=== PATIENT | male | born 2000 | race African-American/Black ===

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

== ENCOUNTER 2019-01-10 06:17 | Emergency (ER) | payer OTHER ==
[~2019-01-10] VITALS: Ht 182.9 cm; Wt 68.0 kg
[~2019-01-10 06:17] MED LIST changes: +ULTRAM50 M1 PO
[2019-01-10 07:47] VITALS: BP 134/85
== END 2019-01-10 07:47 | disposition home or self-care (01) | DRG 605 ==
LOC: ED 06:17
PROC: 0HQGXZZ Repair Left Hand Skin, External Approach (ICD-10-PCS; principal; 2019-01-10)
DX: S61.012A Laceration without foreign body of left thumb without damage to nail, initial encounter (principal); W26.0XXA Contact with knife, initial encounter; Y93.G1 Activity, food preparation and clean up; Y92.89 Other specified places as the place of occurrence of the external cause; Y99.0 Civilian activity done for income or pay

== ENCOUNTER 2019-11-29 22:45 | Observation (INO) | payer OTHER ==
[~2019-11-29] VITALS: Ht 182.9 cm; Wt 68.2 kg
--- NOTE | 2019-11-29 23:00 | NUR ---
TO ROOM FOR TRIAGE.
[2019-11-29 23:44] LABS: HEMATOCRIT 40.9 % (39.0-50.0); HEMOGLOBIN 13.3 g/dl (14.0-18.0); IMMATURE GRANULOCYTES 0.1 % (0.0-5.0); MEAN CELL VOLUME 86.3 fL CALC (80.0-100.0); MEAN CORPUSCULAR HGB 28.1 pG CALC (26.0-32.0); MEAN CORPUSCULAR HGB CONC 32.5 g/dL CAL (32.0-36.0); NEUT# 2.84 thou/uL (1.82-7.42); RED BLOOD COUNT 4.74 mill/uL (4.70-6.10); RED CELL DISTRI WIDTH 13.2 % (11.5-15.5)
[2019-11-29 23:53] LABS: ALBUMIN 4.4 g/dL (3.2-5.0); ALKALINE PHOSPHATASE 123 u/l (38-126); ANION GAP 11 (6-22 (CALC)); BILIRUBIN, TOTAL 0.4 mg/dL (0.0-1.4); BUN 15 mg/dL (9-20); BUN/CREATININE RATIO 18 (12-20 (CALC)); CARBON DIOXIDE 28 mmol/l (22-30); CHLORIDE 103 mmol/l (95-108); CREATININE 0.8 mg/dL (0.7-1.3); GFR > 60 ML/MIN (>=60 (CALC)); GFR FOR AFR.AMER. > 60 ML/MIN (>=60 (CALC)); POTASSIUM 3.5 mmol/l (3.5-5.1); SGOT/AST 37 u/l (17-59); SODIUM 139 mmol/l (137-146); TOTAL PROTEIN 7.6 g/dL (6.3-8.2)
[2019-11-30] VITALS (8 sets, daily range): BP systolic 130–153; BP diastolic 73–91
[2019-11-30 00:05] LABS: MYOGLOBIN 32 ng/mL (0 - 121)
--- NOTE | 2019-11-30 01:00 | NUR ---
PAIN FREE. NO C/O.
--- NOTE | 2019-11-30 02:00 | NUR ---
AWAITING TEST RESULTS. NO CHANGE NOTED.
--- NOTE | 2019-11-30 04:00 | NUR ---
Admission Note Report Given to: GONZALEZ GO Transported by: Wheelchair X Stretcher Transported with: X Nurse Transporter X Patent IV O2 X Telecommunications Line Installer Location: X ICU MS2
--- NOTE | 2019-11-30 04:09 | NUR ---
19 yr old black male admitted icu7 per stretcher as medsurg tele overflow. amb self to bed. bed weight obtained. monitoring tech shows sinus yonis, in & out of jct'l rhythm hr 42. #20 rac saline lock. history obtained per pt & er record. oriented to room. fall precautions initiated.
--- NOTE | 2019-11-30 05:53 | NUR ---
rt here. ekg obtained.
--- NOTE | 2019-11-30 07:23 | NUR ---
PT SLEEPING IN BED, NO S/S OF DISTRESS. WILL CONTINUE TO MONITOR.
--- NOTE | 2019-11-30 08:03 | NUR ---
LAB @BEDSIDE FOR AM DRAW.
[2019-11-30 08:24] LABS: HEMATOCRIT 40.4 % (39.0-50.0); HEMOGLOBIN 13.1 g/dl (14.0-18.0); MEAN CELL VOLUME 86.9 fL CALC (80.0-100.0); MEAN CORPUSCULAR HGB 28.2 pG CALC (26.0-32.0); MEAN CORPUSCULAR HGB CONC 32.4 g/dL CAL (32.0-36.0); NEUT# 1.66 thou/uL (1.82-7.42); RED BLOOD COUNT 4.65 mill/uL (4.70-6.10); RED CELL DISTRI WIDTH 13.4 % (11.5-15.5)
[2019-11-30 08:43] LABS: ALBUMIN 3.9 g/dL (3.2-5.0); ALKALINE PHOSPHATASE 102 u/l (38-126); ANION GAP 9 (6-22 (CALC)); BILIRUBIN, TOTAL 0.3 mg/dL (0.0-1.4); BUN 14 mg/dL (9-20); BUN/CREATININE RATIO 17 (12-20 (CALC)); CARBON DIOXIDE 28 mmol/l (22-30); CHLORIDE 104 mmol/l (95-108); CREATININE 0.9 mg/dL (0.7-1.3); GFR > 60 ML/MIN (>=60 (CALC)); GFR FOR AFR.AMER. > 60 ML/MIN (>=60 (CALC)); SGOT/AST 42 u/l (17-59); SODIUM 137 mmol/l (137-146); TOTAL PROTEIN 6.7 g/dL (6.3-8.2)
--- NOTE | 2019-11-30 09:00 | NUR ---
DR MONTERROSO @BEDSIDE
--- NOTE | 2019-11-30 09:19 | NUR ---
PTS GRANDMA @BEDSIDE.
--- NOTE | 2019-11-30 09:28 | NUR ---
DR MONTERROSO @BEDSIDE WITH GRANDMA TO UPDATE ON PTS STATUS.
--- NOTE | 2019-11-30 12:00 | NUR ---
PT SITTING UP ON SIDE OF BED, EATING LUNCH. DENIES PAIN. WILL CONTINUE TO MONITOR.
--- NOTE | 2019-11-30 15:50 | NUR ---
DR MONTERROSO @BEDSIDE DISCUSSING DC
[2019-11-30] MEDS ORDERED: IBUPROFEN600 MG PO (15:52)
--- NOTE | 2019-11-30 16:20 | NUR ---
PT AMBULATED OUT OF UNIT WITH GIRLFRIEND USING STEADY GAIT. PT REFUSED WC. PT EDUCATED ON DC INSTRUCTIONS; INCLUDING RX x1.
== END 2019-11-30 16:20 | disposition home or self-care (01) | DRG 313 ==
LOC: ED 22:45 → ED-I 11-30 03:00 → ED 11-30 03:35 → ED-I 11-30 03:36 → ICU 11-30 04:00
PROVIDERS: Emergency Medicine; Internal Medicine; ADMIT Internal Medicine; ATTEND Internal Medicine
DX: R07.89 Other chest pain (principal); I49.8 Other specified cardiac arrhythmias; F17.290 Nicotine dependence, other tobacco product, uncomplicated; Z20.828 Contact with and (suspected) exposure to other viral communicable diseases

== ENCOUNTER 2022-06-19 08:01 | Emergency (ER) | payer BC ==
[~2022-06-19] VITALS: Ht 182.9 cm; Wt 63.5 kg
[~2022-06-19 08:01] MED LIST changes: +IBUPROFEN600 MG PO
[2022-06-19 08:05] VITALS: BP 146/93
[2022-06-19 08:30] VITALS: BP 125/77
[2022-06-19] MEDS ORDERED: PREDNISONE50 MG PO (08:55)
[2022-06-19] MEDS ORDERED: ZPAK PO (08:55)
[2022-06-19] MEDS ORDERED: PROVENTIL HFA IN (08:55)
[2022-06-19 09:01] VITALS: BP 130/73
== END 2022-06-19 09:09 | disposition home or self-care (01) | DRG 153 ==
LOC: ED 08:01
DX: J06.9 Acute upper respiratory infection, unspecified (principal)